=== PATIENT | female | born 1955 | race Caucasian/White ===

== ENCOUNTER 2017-01-13 15:09 | Observation (INO) | payer OTHER ==
[2017-01-13 15:09] VITALS: BMI 34.5
[2017-01-13 15:16] VITALS: TEMP 98.1
[2017-01-13] MEDS ORDERED: Iohexol 240 (50 ml) PO STA (16:06)
[2017-01-13] MEDS ORDERED: Sodium Chloride 0.9% 1,000 ML IV ONE (16:06)
--- NOTE | 2017-01-13 16:06 | C.PDOC ---
History Of Present Illness <Tarsha Canada - Last Filed: 01/13/17 18:46> <Sondra Valenzuelaoseas Flanagan - Last Filed: 01/13/17 20:43> 61-year-old female, presents to the emergency department with complaints of epigastric abdominal pain that started 22 days ago. Pain was initially only felt when she was coughing. Over the past few days, pain became more constant and severe, associated with abdominal bloating, resulting in her coming to the ED for evaluation. Pt denies nausea/vomiting, dizziness, or any other associated symptoms. Hx of cholecystectomy and . (Tarsha Canada) History Per: Patient History/Exam Limitations: no limitations <Tarsha Canada - Last Filed: 01/13/17 18:46> <LanaaleahIbeth Flanagan - Last Filed: 01/13/17 20:43> Time Seen by Provider: 01/13/17 15:42 Chief Complaint (Nursing): Abdominal Pain Past Medical History Reviewed: Historical Data, Nursing Documentation, Vital Signs - Medical History PMH: Asthma, Back Problems Surgical History: Cholecystectomy Family History: States: Unknown Family Hx - Social History Hx Tobacco Use: No Hx Alcohol Use: No Hx Substance Use: No - Immunization History Hx Tetanus Toxoid Vaccination: Yes Hx Influenza Vaccination: Yes Hx Pneumococcal Vaccination: No <Tarsha Canada - Last Filed: 01/13/17 18:46> Vital Signs: Last Vital Signs Temp 98.1 F 01/13/17 15:14 Pulse 89 01/13/17 18:32 Resp 14 01/13/17 18:32 BP 159/100 H 01/13/17 18:32 Pulse Ox 96 01/13/17 18:46 - [facility] Procedures COLONOSCOPY (04/01/14) Review Of Systems Except As Marked, All Systems Reviewed And Found Negative. Constitutional: Negative for: Fever, Chills Cardiovascular: Negative for: Chest Pain, Palpitations Respiratory: Negative for: Cough, Shortness of Breath Gastrointestinal: Positive for: Abdominal Pain Musculoskeletal: Negative for: Back Pain Skin: Negative for: Rash Neurological: Negative for: Weakness, Numbness <Tarsha Canada - Last Filed: 01/13/17 18:46> Physical Exam - Physical Exam Appears: Non-toxic, No Acute Distress Skin: Normal Color, Warm, Dry Eye(s): bilateral: Normal Inspection, PERRL, EOMI Nose: Normal Oral Mucosa: Moist Lips: Normal Appearing Neck: Normal ROM Cardiovascular: Rhythm Regular Respiratory: Normal Breath Sounds Gastrointestinal/Abdominal: Tenderness, No Guarding, No Rebound Back: Normal Inspection Extremity: Normal ROM Neurological/Psych: Oriented x3, Normal Speech <DreadTarsha - Last Filed: 01/13/17 18:46> ED Course And Treatment - Laboratory Results Result Diagrams: 01/13/17 16:31 01/13/17 16:31 O2 Sat by Pulse Oximetry: 96 <Tarsha Canada - Last Filed: 01/13/17 18:46> - Laboratory Results Result Diagrams: 01/13/17 16:31 01/13/17 16:31 Progress Note: Pt was signed out to me by Dr. Canada at 7pm to f/up pelvic US results. Pt feels ok and wants to go home now. Reassessment Condition: Improved <Ibeth Valenzuela - Last Filed: 01/13/17 20:43> Medical Decision Making <Tarsha Canada - Last Filed: 01/13/17 18:46> <Ibeth Valenzuela E - Last Filed: 01/13/17 20:43> Medical Decision Making: PATIENT WAS OFFERED MED FOR PAIN, BUT IS REFUSING AT THIS TIME. (Tarsah Canada) ED OBSERVATION Date of observation admission: 01/13/17 Time of observation admission: 16:00 <Tarsha Canada - Last Filed: 01/13/17 18:46> Discharge: Yes <Ibeth Valenzuela - Last Filed: 01/13/17 20:43> - Observation admission statement Patient is being placed in observation because:: ABD PAIN (Tarsha Canada) - Goals of Observation Goals of observation are:: NEG ACUTE ABD; SX IMPROVE (Tarsha Canada) - Progress Note Progress Note: 01/13/17 19:00 S/O DR VEGA FINN US, DISPO (Tarsha Canada) Disposition <Tarsha Canada - Last Filed: 01/13/17 18:46> Counseled Patient/Family Regarding: Studies Performed, Diagnosis, Need For Followup, Rx Given - Disposition Disposition Time: 20:43 <Ibeth Valenzuela - Last Filed: 01/13/17 20:43> - Disposition Disposition: HOME/ ROUTINE Condition: IMPROVED - Clinical Impression Clinical Impression: Abdominal pain, Uterine leiomyoma - Scribe Statement The provider has reviewed the documentation as recorded by the Scribe <Tarsha Canada - Last Filed: 01/13/17 18:46> <Ibeth Valenzuela - Last Filed: 01/13/17 20:43> - Scribe Statement Cheryl Interiano All medical record entries made by the Scribe were at my direction and personally dictated by me. I have reviewed the chart and agree that the record accurately reflects my personal performance of the history, physical exam, medical decision making, and the department course for this patient. I have also personally directed, reviewed, and agree with the discharge instructions and disposition. (Tarsha Canada)
[2017-01-13] MEDS ORDERED: Iohexol 240 (50 ml) ONE (16:31)
[2017-01-13] MEDS ORDERED: Sodium Chloride 0.9% 1,000 ML ONE (16:31)
[2017-01-13 16:41] LABS: BASO % 0.6 % (0.0-2.0); EOS # 0.4 K/uL (0.0-0.7); EOS % 7.1 % (0.0-4.0); HEMATOCRIT 40.6 % (34.0-47.0); LYMPH # 1.8 K/uL (1.0-4.3); LYMPH % 34.9 % (20.0-40.0); MEAN CELL VOLUME 88.2 fL (81.0-99.0); MEAN CORPUSCULAR HEMOGLOBIN 29.2 pg (27.0-31.0); MEAN CORPUSCULAR HGB CONC 33.1 g/dL (33.0-37.0); MEAN PLATELET VOLUME 9.8 fL (7.2-11.7); MONO # 0.4 K/uL (0.0-0.8); MONO % 6.8 % (0.0-10.0); WHITE BLOOD COUNT 5.3 K/uL (4.8-10.8)
[2017-01-13 16:47] LABS: RBC URINE < 1 /hpf (0-3); URINE BILIRUBIN NEGATIVE (NEGATIVE); URINE BLOOD NEGATIVE (NEGATIVE); URINE COLOR Yellow (YELLOW); URINE GLUCOSE (UA) NORMAL (Normal); URINE KETONE NEGATIVE (NEGATIVE); URINE PROTEIN NEGATIVE (NEGATIVE); URINE UROBILINOGEN NORMAL mg/dL (0.2-1.0); WBC URINE 3 /hpf (0-5)
[2017-01-13 16:48] LABS: URINE LEUKOCYTE ESTERASE NEGATIVE Leu/uL (Negative)
[2017-01-13 16:55] LABS: CHLORIDE 99 mmol/L (98-107); POTASSIUM 3.8 mmol/L (3.6-5.2); SODIUM 141 mmol/L (132-148)
[2017-01-13 16:57] LABS: AST/SGOT 54 U/L (14-36); BILIRUBIN,TOTAL 0.6 mg/dL (0.2-1.3); CARBON DIOXIDE 28 mmol/L (22-30); GFR AFRICAN-AMERICAN > 60
[2017-01-13 16:58] LABS: ALB/GLOB RATIO 1.1 (1.0-2.1); ALKALINE PHOSPHATASE 113 U/L (38-126); ALT/SGPT 64 U/L (9-52); BLOOD UREA NITROGEN 11 mg/dL (7-17); GLUCOSE,RANDOM 104 mg/dL (65-105); TOTAL PROTEIN 7.7 g/dL (6.3-8.3)
[2017-01-13] MEDS ORDERED: Iodixanol 320 MG/ML 100 ML BOTTLE IV ONE (17:13)
--- NOTE | 2017-01-13 18:15 | CT ---
PROCEDURE: CT Abdomen and Pelvis with oral and IV contrast. HISTORY: RUQ abd pain; HO CHOLECYST, CSECT COMPARISON: None available TECHNIQUE: Contiguous axial images of the abdomen and pelvis. Oral and IV contrast was administered. Coronal and Sagittal reformats generated and reviewed. Contrast dose: 100 cc Visipaque 320 Radiation dose: Total exam DLP = 1025.11 mGy-cm. FINDINGS: LOWER THORAX: Minimal basilar atelectasis. There is no visible pleural effusion or pneumothorax. Small hiatal hernia/distal esophageal wall thickening. LIVER: Hypoattenuation of the liver compatible with hepatic steatosis. GALLBLADDER AND BILE DUCTS: Cholecystectomy. PANCREAS: Unremarkable. SPLEEN: Unremarkable. ADRENALS: Unremarkable. KIDNEYS AND URETERS: The kidneys enhance symmetrically. No hydronephrosis or obstructing renal calculus. BLADDER: Mildly thick-walled urinary bladder appears exaggerated by under distension. REPRODUCTIVE: Heterogeneous lobulated probable fibroid uterus. Retroverted. Probable left ovarian cysts. Adjacent nonspecific sub cm calcification. APPENDIX: The appendix appears within normal limits of caliber. No secondary signs of acute appendicitis. BOWEL: The stomach is nondistended. The bowel loops appear within normal limits of caliber without evidence of intestinal obstruction. PERITONEUM: No significant free fluid. No definite free air. LYMPH NODES: No bulky lymphadenopathy identified. VASCULATURE: No aortic aneurysm. BONES: No acute osseous abnormality is detected. OTHER FINDINGS: Small fat containing umbilical hernia. Scattered nonspecific calcifications, bilateral gluteal soft tissues. IMPRESSION: Heterogeneous lobulated probable fibroid uterus. Suspected left ovarian cysts. Nonspecific adjacent calcification. Suggest pelvic ultrasound for further evaluation. Mildly thick-walled urinary bladder likely exaggerated by under distension. Correlate with urinalysis. Cholecystectomy. Hepatic steatosis. Small hiatal hernia/ distal esophageal wall thickening.
--- NOTE | 2017-01-13 20:26 | US ---
EXAM: US Pelvis Complete, Transabdominal. CLINICAL HISTORY: 61 years old, postmenopausal female; Pain; Pelvic pain; Additional info: Abd pain RO torsion/ruptured cyst TECHNIQUE: Real-time transabdominal pelvic ultrasound (complete) with image documentation. COMPARISON: No priors FINDINGS: Uterus: Uterus is retroflexed. The uterus measures approximately 9.5 and 4.5 x 6.2 cm. Endometrium could not be visualized. Adnexa: Neither ovary could be identified Bladder: Urinary bladder is only partially distended IMPRESSION: Limited transabdominal pelvic ultrasound secondary to body habitus and incomplete bladder distention, retroflexed uterus EXAM: US Pelvis, Transvaginal. CLINICAL HISTORY: 61 years old, postmenopausal female; Pain; Pelvic pain; Additional info: Abd pain RO torsion/ruptured cyst TECHNIQUE: Real-time transvaginal pelvic ultrasound (complete) with image documentation. Transvaginal imaging was used for better evaluation of the endometrium and adnexa. EXAM DATE/TIME: 01/13/2017 6:36 PM COMPARISON: There are no prior studies for comparison. FINDINGS: Uterus measures approximately 8.6 x 5.7 x 6.1 cm. There is a small amount of fluid in the endometrial canal. Endometrium measures approximately 1.6 mm in width. There is a 2.2 x 1.7 x 2.1 cm posterior fibroid in the lower uterus. There is a 2.8 x 2.2 x 2.4 cm posterior fibroid in uterine body with a calcification. There is a 3.5 x 3 x 3.4 cm fundal fibroid. Right ovary: Right ovary measures approximately 1.87 x 0.94 x 1.75 cm. There are small follicles.There is expected blood flow on Doppler imaging Left ovary: Left ovary measures approximately 1.99 x 1.31 x 1.76 cm. There are small follicles.There is expected blood flow on Doppler imaging IMPRESSION: Normal ovaries, no torsion; fibroid uterus; small amount of fluid in the endometrial canal with normal endometrial cordero
[2017-01-13 21:01] VITALS: BP 148/77; PULSE 84; RESP 16; O2SAT 99
== END 2017-01-13 20:49 | disposition home or self-care (01) ==
LOC: C.ER 15:09 → C.9OBSV 16:00
PROVIDERS: ADMIT Emergency Medicine; ATTEND Emergency Medicine
DX: D25.9 Leiomyoma of uterus, unspecified (principal); J45.909 Unspecified asthma, uncomplicated; Z90.49 Acquired absence of other specified parts of digestive tract; Z98.890 Other specified postprocedural states

== ENCOUNTER 2017-05-16 22:28 | Emergency (ER) | payer MEDICAID ==
[2017-05-16 22:29] VITALS: BMI 34.5
--- NOTE | 2017-05-17 00:27 | C.PDOC ---
History Of Present Illness Patient presents to the ER with a complaint of a headache, chest pain, left breast pain, and bleeding from the left nipple. Denies recent trauma, fever, chills, nausea, or vomiting. Time Seen by Provider: 05/16/17 23:52 Chief Complaint (Nursing): Headache History Per: Patient History/Exam Limitations: no limitations Onset/Duration Of Symptoms: Hrs Current Symptoms Are (Timing): Still Present Severity: Moderate Pain Scale Rating Of: 4 Preceeding Symptoms: None Associated Symptoms: denies: Nausea, Vomiting Recent travel outside of the [place]: No Past Medical History Reviewed: Historical Data, Nursing Documentation, Vital Signs Vital Signs: Last Vital Signs Temp 97.6 F 05/17/17 02:10 Pulse 82 05/17/17 02:10 Resp 17 05/17/17 02:10 BP 120/76 05/17/17 02:10 Pulse Ox 96 05/17/17 02:10 - Medical History PMH: Asthma, Back Problems, Gastrointestinal Ulcer, HTN Surgical History: Cholecystectomy - [facility] Procedures COLONOSCOPY (04/01/14) Family History: States: Unknown Family Hx - Social History Hx Tobacco Use: No Hx Alcohol Use: No Hx Substance Use: No - Immunization History Hx Tetanus Toxoid Vaccination: Yes Hx Influenza Vaccination: Yes Hx Pneumococcal Vaccination: No Review Of Systems Constitutional: Negative for: Fever, Chills Cardiovascular: Positive for: Chest Pain Gastrointestinal: Negative for: Nausea, Vomiting Neurological: Positive for: Headache Physical Exam - Physical Exam Appears: Non-toxic Skin: Warm, Dry Head: Normacephalic Eye(s): bilateral: Normal Inspection Oral Mucosa: Moist Neck: Trachea Midline, No Midline Cervical Tenderness, No Paracervical Tenderness, Supple Chest: Symmetrical, No Tenderness, Other (No active bleeding noticed from left nipple at presents time; however, blood noted on bra and shirt.) Cardiovascular: Rhythm Regular, No Murmur Respiratory: No Rales, No Rhonchi, No Wheezing Gastrointestinal/Abdominal: Soft, No Tenderness Back: No CVA Tenderness Extremity: Normal ROM Extremity: Bilateral: Atraumatic Neurological/Psych: Oriented x3, Normal Speech, Normal Cognition Gait: Steady Additional Physical Exam Comments: Physical exam done with Nurse Moreno present. ED Course And Treatment - Laboratory Results Result Diagrams: 05/17/17 00:45 05/17/17 00:45 O2 Sat by Pulse Oximetry: 99 (Room air) Pulse Ox Interpretation: Normal Progress Note: Blood work, chest CT, and EKG ordered. Reevaluation Time: 02:25 Reassessment Condition: Improved Medical Decision Making Medical Decision Making: spoke with the patient about the importance of obtaining a mammogram in order to elucidate the etiology of the breast nodule. Pt will follow up Disposition Counseled Patient/Family Regarding: Studies Performed, Diagnosis, Need For Followup - Disposition Referrals: Gaby Velasquez MD [Staff Provider] - Disposition: HOME/ ROUTINE Disposition Time: 00:26 Condition: FAIR Additional Instructions: Please make sure to obtain a mammogram Instructions: Breast Mass (ED) Print Language: KHMER - Clinical Impression Clinical Impression: Breast nodule - Scribe Statement The provider has reviewed the documentation as recorded by the Scribe Jarad Conway All medical record entries made by the Jingibe were at my direction and personally dictated by me. I have reviewed the chart and agree that the record accurately reflects my personal performance of the history, physical exam, medical decision making, and the department course for this patient. I have also personally directed, reviewed, and agree with the discharge instructions and disposition.
[2017-05-17 00:52] LABS: BASO % 0.5 % (0.0-2.0); EOS # 0.3 K/uL (0.0-0.7); EOS % 4.8 % (0.0-4.0); HEMATOCRIT 42.4 % (34.0-47.0); LYMPH # 2.6 K/uL (1.0-4.3); LYMPH % 41.7 % (20.0-40.0); MEAN CELL VOLUME 89.2 fL (81.0-99.0); MEAN CORPUSCULAR HEMOGLOBIN 29.9 pg (27.0-31.0); MEAN CORPUSCULAR HGB CONC 33.5 g/dL (33.0-37.0); MONO # 0.4 K/uL (0.0-0.8); MONO % 6.3 % (0.0-10.0); NRBC % 0.1 % (0.0-2.0); RED CELL DISTRIBUTION WIDTH 13.9 % (11.5-14.5); WHITE BLOOD COUNT 6.2 K/uL (4.8-10.8)
[2017-05-17 01:00] LABS: INR 1.1; URINE BILIRUBIN NEGATIVE (NEGATIVE); URINE BLOOD NEGATIVE (NEGATIVE); URINE COLOR Straw (YELLOW); URINE GLUCOSE (UA) NORMAL (Normal); URINE KETONE NEGATIVE (NEGATIVE); URINE LEUKOCYTE ESTERASE NEG Leu/uL (Negative); URINE PROTEIN NEGATIVE (NEGATIVE); URINE UROBILINOGEN NORMAL mg/dL (0.2-1.0); WBC URINE < 1 /hpf (0-5)
[2017-05-17 01:09] LABS: CHLORIDE 98 mmol/L (98-107)
[2017-05-17 01:11] LABS: SODIUM 143 mmol/L (132-148)
[2017-05-17 01:12] LABS: ALB/GLOB RATIO 1.1 (1.0-2.1); ALKALINE PHOSPHATASE 169 U/L (38-126); ALT/SGPT 79 U/L (9-52); AST/SGOT 57 U/L (14-36); BILIRUBIN,TOTAL 0.6 mg/dL (0.2-1.3); BLOOD UREA NITROGEN 6 mg/dL (7-17); CALCIUM 8.5 mg/dl (8.6-10.4); CARBON DIOXIDE 27 mmol/L (22-30); GFR AFRICAN-AMERICAN > 60; GLUCOSE,RANDOM 136 mg/dL (65-105); TOTAL PROTEIN 8.1 g/dL (6.3-8.3)
--- NOTE | 2017-05-17 01:20 | CT ---
EXAM: CT Chest Without Intravenous Contrast CLINICAL HISTORY: 61 years old, female; Pain; Chest pain; Additional info: Attention left breast, bleeding, poss ca TECHNIQUE: Axial computed tomography images of the chest without intravenous contrast. This CT exam was performed using one or more of the following dose reduction techniques: automated exposure control, adjustment of the mA and/or kV according to patient size, and/or use of iterative reconstruction technique. Coronal and sagittal reformatted images were created and reviewed. COMPARISON: No relevant prior studies available. FINDINGS: Limitations: Lack of intravenous contrast. Motion artifact - mild. Incomplete visualization of breasts. Lungs: No consolidation. Few pulmonary nodules, up to 0.4 cm. Pleural space: No pneumothorax. No significant effusion. Heart: No cardiomegaly. No significant pericardial effusion. Thyroid: Heterogeneous with few apparent small cysts or nodules. Bones/joints: Mild degenerative changes of spine. No acute fracture. Soft tissues: Partially calcified 1.1 x 0.8 x 1.3 cm nodule LEFT breast. Vasculature: Minimal atherosclerotic disease of aorta. No aneurysm. Lymph nodes: No pathologically enlarged lymph nodes. Liver: Small calcification. Gallbladder and bile ducts: Cholecystectomy. IMPRESSION: 1. Breast lesion, nonspecific. Recommend mammography. 2. Heterogeneous thyroid. Followup as clinically warranted. 3. Pulmonary nodules. For low-risk patients, no follow-up is necessary. For high-risk patients (smoking history or other known risk factors) an optional CT at 12 months could be performed. 4. Incidental/non-acute findings are described above.
[2017-05-17 02:12] VITALS: BP 120/76; PULSE 82; RESP 17; TEMP 97.6
[2017-05-17 02:28] VITALS: O2SAT 99
== END 2017-05-17 02:37 | disposition home or self-care (01) ==
LOC: C.ER 22:28
DX: N63 Unspecified lump in breast (principal); I10 Essential (primary) hypertension

== ENCOUNTER 2018-05-01 08:28 | Day surgery (SDC) | payer MEDICAID ==
[2018-04-13 08:48] VITALS: BMI 31.1
[2018-05-01] MEDS ORDERED: ceFAZolin IV 1 gm in Dextrose 1 GM/50 ML BAG IVPB ONE (11:21)
[2018-05-01] MEDS ORDERED: Lidocaine Hydrochloride 0 ML INJ ONE (11:22)
[2018-05-01] MEDS ORDERED: Bupivacaine 0.25% 20 ML INJ IJ ONE (11:22)
[2018-05-01] MEDS ORDERED: ceFAZolin IV 2 gm in Dextrose 0 GM/0 ML BAG IVPB ONE (11:22)
[2018-05-01] MEDS ORDERED: Propofol 10 mg/ml Inj (20 ML) ONE (11:33)
[2018-05-01] MEDS ORDERED: Midazolam 2 MG/2 ML VIAL ONE (11:33)
[2018-05-01] MEDS ORDERED: Oxycodone/Acetaminophen 5/325 mg Tab PO PRN (12:37)
[2018-05-01] MEDS: HYDROmorphone 0.5 mg/0.5 ml ISec IVP PRN ×2 (12:40→13:09)
[2018-05-01 15:31] VITALS: BP 137/82; PULSE 71; RESP 18; TEMP 98; O2SAT 100
--- NOTE | 2018-05-03 09:51 | OP ---
PROCEDURE DATE: 05/01/2018 PREOPERATIVE DIAGNOSIS: Left breast mass. POSTOPERATIVE DIAGNOSIS: Left breast mass. PROCEDURE PERFORMED: Excision of papilloma, left breast. SURGEON: Keshawn Nevarez MD ANESTHESIA: General.m BLOOD LOSS: 20 mL. POSTOPERATIVE CONDITION: Stable. INDICATIONS FOR SURGERY: This is a 62-year-old female with a history of a bloody discharge from her left nipple. Examination revealed a subareolar mass consistent with papilloma, and she now will undergo an excision. DESCRIPTION OF PROCEDURE: The patient was taken to the operating room. General anesthesia was administered. The left breast was prepped and draped. A curvilinear incision was made over the left nipple, and the mass beneath the nipple was completely dissected free and removed. Bleeding was controlled using the Bovie. Larger blood vessels were repaired. The wound was irrigated with saline. The tissue flap closure was performed utilizing Monocryl, subcuticular Monocryl and glue. The patient tolerated the procedure well, returned to recovery room in stable condition. Keshawn Nevarez MD
== END 2018-05-01 15:44 | disposition home or self-care (01) ==
LOC: C.SDS 08:28
PROVIDERS: ATTEND Surgery
DX: D24.2 Benign neoplasm of left breast (principal)
CPT/HCPCS: 19120; 87070; 88307; J0690; J1170; J2250; J2405; J2704; J3010